=== PATIENT | male | born 1960 | race Caucasian/White ===

== ENCOUNTER 2021-05-22 06:50 | Inpatient (IN) ==
[2021-05-22] MEDS ORDERED: CeFAZolin Syr 2,000MG/20 ML 2,000 MG/20 ML SYRINGE IVPB ONE (07:28)
[2021-05-22] MEDS ORDERED: Ringers Solution, Lactated 1,000 ML IVC SCH (07:30)
[2021-05-22] MEDS ORDERED: Acetaminophen IV 1,000 MG/100 ML BAG IVPB ONE (07:47)
[2021-05-22] MEDS ORDERED: *HR* FentaNYL (PF) 100 MCG/2 ML VIAL ONE (08:07)
[2021-05-22] MEDS ORDERED: *HR* Propofol 200 MG/20 ML VIAL IVP ONE (08:07)
[2021-05-22] MEDS ORDERED: Lidocaine HCL 4 ML Topical Solution (Laryng-O-Jet Kit Sterile Pak) TP ONE (08:09)
[2021-05-22] MEDS ORDERED: Lidocaine -MPF 2% 2 ML VIAL ONE (08:09)
[2021-05-22] MEDS ORDERED: Ondansetron 4 MG/2 ML VIAL ONE (08:09)
[2021-05-22] MEDS ORDERED: *HR* Rocuronium Bromide 50 MG/5 ML VIAL ONE (08:09)
[2021-05-22] MEDS ORDERED: *HR* Succinylcholine 200 MG/10 ML VIAL IVP ONE (08:09)
[2021-05-22] MEDS ORDERED: *HR* HYDROMORPHONE 2 MG/ML VIAL ONE (09:48)
[2021-05-22] MEDS: *HR* HYDROmorphone (PF) 1 MG/ML SYRINGE IVP PRN ×3 (12:10→23:50)
[2021-05-22] MEDS ORDERED: Ondansetron 4 MG/2 ML VIAL IVP PRN ×2 (12:14→13:00)
[2021-05-22] MEDS ORDERED: *HR* FentaNYL (PF) 100 MCG/2 ML VIAL IVP PRN (12:14)
[2021-05-22] MEDS ORDERED: Naloxone 0.4 MG/ML INJ IVP PRN (13:00)
[2021-05-22] MEDS: 0.9 % Sodium Chloride 1,000 ML IVC SCH (13:44)
[2021-05-22] MEDS: Gabapentin 300 MG CAPSULE PO SCH ×2 (15:31→21:19)
[2021-05-22] MEDS: *HR* Heparin 5,000 UNIT/ML VIAL SQ SCH ×2 (15:31→21:19)
[2021-05-22] MEDS: Ipratropium/Albuterol Neb 3 ML IH SCH ×4 (15:42→23:00)
[2021-05-22] MEDS: *HR* HYDROcodone/Acet 5/325 mg TABLET PO PRN ×2 (17:47→23:16)
[2021-05-22] MEDS: Sennosides/Docusate Sodium TABLET PO SCH (21:19)
[2021-05-22] MEDS: Famotidine 20 MG TABLET PO SCH (21:19)
[2021-05-22] MEDS: *HR* HYDROcodone/Acet 7.5/325 mg TABLET PO PRN (23:50)
[2021-05-23 02:24] LABS: Hematocrit 33.5 % (37.5-50.1); Hemoglobin 10.2 g/dL (12.9-16.9); Mean Corpuscular HGB Conc 30.4 g/dL (31.6-35.5); Mean Corpuscular Volume 85.2 fL (83.0-100.0); Mean Platelet Volume 9.4 fL (9.4-12.4); Platelet Count 413 K/mcL (140-400); Red Blood Count 3.93 M/mcL (4.19-5.50); Red Cell Distribution Width 13.9 % (11.5-14.5)
[2021-05-23 02:26] LABS: White Blood Count 16.7 K/mcL (4.3-11.1)
[2021-05-23 02:41] LABS: % Iron Saturation 3 % (20-55); BUN/Creatinine Ratio 20 (6-26); Blood Urea Nitrogen 25 mg/dL (6-20); Calcium 8.6 mg/dL (8.6-10.3); Carbon Dioxide 25 mEq/L (23-29); Chloride 107 mEq/L (98-107); Glucose 140 mg/dL (70-105); Iron 11 mcg/dL (65-175); Magnesium 1.9 mg/dL (1.6-2.6); Osmolality,Calculated 297 (280-300); Potassium 4.5 mEq/L (3.5-5.1); Sodium 140 mEq/L (136-145); Transferrin 278 mg/dL (203-362); eGFR For African Americans > 60 (> 60); eGFR For Non-African Americans 58 (> 60)
[2021-05-23] MEDS: 0.9 % Sodium Chloride 1,000 ML IVC SCH (02:43)
[2021-05-23] MEDS: Ipratropium/Albuterol Neb 3 ML IH SCH ×6 (03:14→23:56)
[2021-05-23] MEDS: *HR* HYDROcodone/Acet 7.5/325 mg TABLET PO PRN ×3 (04:55→20:49)
[2021-05-23] MEDS: *HR* Heparin 5,000 UNIT/ML VIAL SQ SCH ×3 (06:22→20:51)
[2021-05-23] MEDS: *HR* HYDROmorphone (PF) 1 MG/ML SYRINGE IVP PRN ×2 (06:51→15:27)
[2021-05-23] MEDS: Psyllium 1 PACKET POWD.PACK PO SCH (08:00)
[2021-05-23] MEDS: Sennosides/Docusate Sodium TABLET PO SCH ×2 (08:00→20:52)
[2021-05-23] MEDS: amLODIPine 5 MG TABLET PO SCH (08:00)
[2021-05-23] MEDS: Famotidine 20 MG TABLET PO SCH ×2 (08:00→20:52)
[2021-05-23] MEDS: Aspirin Enteric Coated 81 MG Tablet PO SCH (08:00)
[2021-05-23] MEDS: Gabapentin 300 MG CAPSULE PO SCH ×3 (08:00→20:52)
[2021-05-23] MEDS: ARNUITY ELLIPTA PO SCH (08:01)
[2021-05-23] MEDS ORDERED: *HR* HYDROcodone/Acet 10/325 mg TABLET PO PRN (08:34)
[2021-05-23] MEDS ORDERED: lisinopriL 20 MG TABLET PO SCH ×2 (09:00)
[2021-05-23] MEDS: Metoclopramide 10 MG/2 ML VIAL IVP SCH ×2 (14:02→20:51)
[2021-05-24] MEDS: Metoclopramide 10 MG/2 ML VIAL IVP SCH ×2 (00:42→06:23)
[2021-05-24 01:10] LABS: Calcium 8.2 mg/dL (8.6-10.3); Potassium 4.7 mEq/L (3.5-5.1)
[2021-05-24] MEDS: Ipratropium/Albuterol Neb 3 ML IH SCH ×6 (03:45→23:39)
[2021-05-24] MEDS: *HR* Heparin 5,000 UNIT/ML VIAL SQ SCH ×3 (06:23→21:10)
[2021-05-24] MEDS: Aspirin Enteric Coated 81 MG Tablet PO SCH (08:02)
[2021-05-24] MEDS: Famotidine 20 MG TABLET PO SCH (08:02)
[2021-05-24] MEDS: Gabapentin 300 MG CAPSULE PO SCH ×3 (08:02→21:11)
[2021-05-24] MEDS: amLODIPine 5 MG TABLET PO SCH (08:02)
[2021-05-24] MEDS: Sennosides/Docusate Sodium TABLET PO SCH ×2 (08:02→21:06)
[2021-05-24] MEDS: ARNUITY ELLIPTA PO SCH (08:03)
[2021-05-24] MEDS: Psyllium 1 PACKET POWD.PACK PO SCH (08:03)
[2021-05-24] MEDS: lisinopriL 20 MG TABLET PO SCH (08:04)
[2021-05-24] MEDS: *HR* HYDROcodone/Acet 7.5/325 mg TABLET PO PRN (14:30)
[2021-05-24] MEDS: Albumin Human 5% 12.5 GM/250 ML IV.SOLN IVC SCH ×2 (15:37→21:06)
[2021-05-24] MEDS: Acetylcysteine 10% 2 ML INHSOL IH SCH ×3 (15:37→23:39)
[2021-05-25] MEDS: Ipratropium/Albuterol Neb 3 ML IH SCH ×6 (04:28→23:17)
[2021-05-25] MEDS: Acetylcysteine 10% 2 ML INHSOL IH SCH ×6 (04:28→23:17)
[2021-05-25] MEDS: *HR* Heparin 5,000 UNIT/ML VIAL SQ SCH ×4 (06:17→21:28)
[2021-05-25] MEDS: amLODIPine 5 MG TABLET PO SCH (07:15)
[2021-05-25] MEDS: Sennosides/Docusate Sodium TABLET PO SCH ×3 (07:15→21:28)
[2021-05-25] MEDS: Gabapentin 300 MG CAPSULE PO SCH ×4 (07:15→21:28)
[2021-05-25] MEDS: lisinopriL 20 MG TABLET PO SCH (07:16)
[2021-05-25] MEDS: ARNUITY ELLIPTA PO SCH (07:16)
[2021-05-25] MEDS: Famotidine 20 MG TABLET PO SCH (07:16)
[2021-05-25] MEDS: Aspirin Enteric Coated 81 MG Tablet PO SCH (07:16)
[2021-05-25] MEDS: Psyllium 1 PACKET POWD.PACK PO SCH (07:16)
[2021-05-25 07:55] LABS: BUN/Creatinine Ratio 34 (6-26); Blood Urea Nitrogen 40 mg/dL (6-20); Carbon Dioxide 30 mEq/L (23-29); Chloride 106 mEq/L (98-107); Glucose 112 mg/dL (70-105); Magnesium 2.4 mg/dL (1.6-2.6); Osmolality,Calculated 301 (280-300); Potassium 4.1 mEq/L (3.5-5.1); Sodium 140 mEq/L (136-145); eGFR For African Americans > 60 (> 60); eGFR For Non-African Americans > 60 (> 60)
[2021-05-25] MEDS: *HR* HYDROcodone/Acet 7.5/325 mg TABLET PO PRN (14:14)
[2021-05-25 22:02] LABS: Basophils # 0.1 K/mcL (0.0-0.2); Basophils % 0.5 %; Eosinophils # 0.1 K/mcL (0.0-0.6); Eosinophils % 1.2 %; Immature Granulocytes % 0.6 % (0-4); Mean Corpuscular HGB Conc 29.7 g/dL (31.6-35.5); Mean Corpuscular Hemoglobin 24.9 pg (28.0-33.3); Mean Corpuscular Volume 84.1 fL (83.0-100.0); Mean Platelet Volume 8.8 fL (9.4-12.4); Monocytes % 9.9 %; Neutrophils # 8.1 K/mcL (1.6-8.9); Platelet Count 346 K/mcL (140-400); Red Blood Count 3.45 M/mcL (4.19-5.50); Red Cell Distribution Width 14.5 % (11.5-14.5); Segmented Neutrophils % 77.8 %; White Blood Count 10.5 K/mcL (4.3-11.1)
[2021-05-25 22:03] LABS: Hemoglobin 8.6 g/dL (12.9-16.9)
[2021-05-25 22:19] LABS: BUN/Creatinine Ratio 34 (6-26); Blood Urea Nitrogen 30 mg/dL (6-20); Calcium 9.2 mg/dL (8.6-10.3); Carbon Dioxide 30 mEq/L (23-29); Chloride 104 mEq/L (98-107); Glucose 137 mg/dL (70-105); Osmolality,Calculated 298 (280-300); Potassium 4.1 mEq/L (3.5-5.1); Sodium 140 mEq/L (136-145); eGFR For African Americans > 60 (> 60); eGFR For Non-African Americans > 60 (> 60)
[2021-05-25 23:18] LABS: VBG HCO3 33 mEq/L (21-27); VBG PCO2 50 mmHg (41-51); VBG PH 7.42 pH Units (7.32-7.42); VBG PO2 225 mmHg (25-50)
[2021-05-26 00:24] LABS: Basophils # 0.1 K/mcL (0.0-0.2); Basophils % 0.5 %; Eosinophils # 0.1 K/mcL (0.0-0.6); Eosinophils % 1.4 %; Hematocrit 28.7 % (37.5-50.1); Hemoglobin 8.5 g/dL (12.9-16.9); Immature Granulocytes % 0.4 % (0-4); Lymphocytes # 1.2 K/mcL (0.6-4.6); Mean Corpuscular HGB Conc 29.6 g/dL (31.6-35.5); Mean Corpuscular Hemoglobin 24.9 pg (28.0-33.3); Mean Corpuscular Volume 83.9 fL (83.0-100.0); Mean Platelet Volume 8.6 fL (9.4-12.4); Monocytes % 10.5 %; Neutrophils # 7.3 K/mcL (1.6-8.9); Nucleated Red Blood Cells 0.2 /100 WBC (0); Platelet Count 343 K/mcL (140-400); Red Blood Count 3.42 M/mcL (4.19-5.50); Red Cell Distribution Width 14.5 % (11.5-14.5); Segmented Neutrophils % 75.2 %; White Blood Count 9.7 K/mcL (4.3-11.1)
[2021-05-26 00:43] LABS: BUN/Creatinine Ratio 34 (6-26); Blood Urea Nitrogen 28 mg/dL (6-20); Calcium 9.4 mg/dL (8.6-10.3); Carbon Dioxide 31 mEq/L (23-29); Chloride 104 mEq/L (98-107); Glucose 127 mg/dL (70-105); Magnesium 2.1 mg/dL (1.6-2.6); Osmolality,Calculated 297 (280-300); Potassium 3.9 mEq/L (3.5-5.1); Sodium 140 mEq/L (136-145); eGFR For African Americans > 60 (> 60); eGFR For Non-African Americans > 60 (> 60)
[2021-05-26] MEDS: Lactulose Oral Soln 20 GM/30 ML UDC PO SCH ×2 (01:02→07:30)
[2021-05-26] MEDS: Ipratropium/Albuterol Neb 3 ML IH SCH ×6 (03:21→23:24)
[2021-05-26] MEDS: Acetylcysteine 10% 2 ML INHSOL IH SCH ×3 (03:21→11:06)
[2021-05-26] MEDS: *HR* Heparin 5,000 UNIT/ML VIAL SQ SCH ×3 (05:23→22:39)
[2021-05-26] MEDS: Famotidine 20 MG TABLET PO SCH (07:29)
[2021-05-26] MEDS: Aspirin Enteric Coated 81 MG Tablet PO SCH (07:29)
[2021-05-26] MEDS: Sennosides/Docusate Sodium TABLET PO SCH ×2 (07:29→22:06)
[2021-05-26] MEDS: lisinopriL 20 MG TABLET PO SCH (07:29)
[2021-05-26] MEDS: Gabapentin 300 MG CAPSULE PO SCH (07:29)
[2021-05-26] MEDS: ARNUITY ELLIPTA PO SCH (07:30)
[2021-05-26] MEDS: Psyllium 1 PACKET POWD.PACK PO SCH (07:30)
[2021-05-26] MEDS: amLODIPine 5 MG TABLET PO SCH (07:30)
[2021-05-26 07:36] LABS: Bilirubin,Urine Negative (Negative); Blood,Urine Negative (Negative); Clarity,Urine Clear (Clear); Color,Urine Light-Yellow (Yellow); Glucose,Urine (UA) Normal (Normal); Ketones,Urine Trace mg/dL (Negative); Leukocyte Esterase,Urine Negative (Negative); Nitrite,Urine Negative (Negative); Protein,Urine Trace mg/dL (Neg-Trace); Specific Gravity,Urine 1.026 (1.010-1.025); Urobilinogen,Urine Normal (Normal)
[2021-05-26] MEDS ORDERED: *HR* HYDROcodone/Acet 5/325 mg TABLET PO PRN (12:45)
[2021-05-26] MEDS ORDERED: Haloperidol Lactate 5 MG/ML VIAL IVP PRN (20:00)
[2021-05-27] MEDS: Ipratropium/Albuterol Neb 3 ML IH SCH ×6 (03:37→23:16)
[2021-05-27] MEDS: *HR* Heparin 5,000 UNIT/ML VIAL SQ SCH ×3 (05:26→22:14)
[2021-05-27 06:40] LABS: Basophils # 0.1 K/mcL (0.0-0.2); Basophils % 0.5 %; Eosinophils # 0.2 K/mcL (0.0-0.6); Eosinophils % 2.3 %; Hematocrit 28.1 % (37.5-50.1); Hemoglobin 8.6 g/dL (12.9-16.9); Immature Granulocytes % 0.5 % (0-4); Lymphocytes # 1.6 K/mcL (0.6-4.6); Lymphocytes % 16.2 %; Mean Corpuscular HGB Conc 30.6 g/dL (31.6-35.5); Mean Corpuscular Hemoglobin 25.1 pg (28.0-33.3); Mean Corpuscular Volume 82.2 fL (83.0-100.0); Mean Platelet Volume 8.9 fL (9.4-12.4); Monocytes # 1.2 K/mcL (0.0-1.3); Monocytes % 12.3 %; Neutrophils # 6.6 K/mcL (1.6-8.9); Platelet Count 373 K/mcL (140-400); Red Blood Count 3.42 M/mcL (4.19-5.50); Red Cell Distribution Width 14.4 % (11.5-14.5); Segmented Neutrophils % 68.2 %; White Blood Count 9.6 K/mcL (4.3-11.1)
[2021-05-27 07:03] LABS: BUN/Creatinine Ratio 27 (6-26); Blood Urea Nitrogen 21 mg/dL (6-20); Carbon Dioxide 33 mEq/L (23-29); Chloride 101 mEq/L (98-107); Glucose 108 mg/dL (70-105); Osmolality,Calculated 290 (280-300); Potassium 3.8 mEq/L (3.5-5.1); Sodium 138 mEq/L (136-145); eGFR For African Americans > 60 (> 60); eGFR For Non-African Americans > 60 (> 60)
[2021-05-27] MEDS: ARNUITY ELLIPTA PO SCH (07:40)
[2021-05-27] MEDS: amLODIPine 5 MG TABLET PO SCH (07:40)
[2021-05-27] MEDS: Sennosides/Docusate Sodium TABLET PO SCH ×3 (07:40→20:14)
[2021-05-27] MEDS: lisinopriL 20 MG TABLET PO SCH (07:40)
[2021-05-27] MEDS: Famotidine 20 MG TABLET PO SCH (07:40)
[2021-05-27] MEDS: Psyllium 1 PACKET POWD.PACK PO SCH (07:40)
[2021-05-27] MEDS: Aspirin Enteric Coated 81 MG Tablet PO SCH (07:40)
[2021-05-27] MEDS ORDERED: Talc (sterile) 4 GM, 0.9 % Sodium Chloride 50 ML, Syringe LUER-LOK 1 EACH IX ONE (13:15)
[2021-05-28] MEDS: Ipratropium/Albuterol Neb 3 ML IH SCH ×3 (03:58→11:06)
[2021-05-28] MEDS ORDERED: Talc (sterile) 4 GM, 0.9 % Sodium Chloride 50 ML, Syringe LUER-LOK 1 EACH IX ONE (06:00)
[2021-05-28] MEDS: *HR* Heparin 5,000 UNIT/ML VIAL SQ SCH (06:25)
[2021-05-28 06:58] VITALS: TEMP 98.3
[2021-05-28 07:46] VITALS: BP 146/74; PULSE 72; O2SAT 94
[2021-05-28] MEDS: Psyllium 1 PACKET POWD.PACK PO SCH (09:36)
[2021-05-28] MEDS: Aspirin Enteric Coated 81 MG Tablet PO SCH (09:36)
[2021-05-28] MEDS: Sennosides/Docusate Sodium TABLET PO SCH (09:36)
[2021-05-28] MEDS: amLODIPine 5 MG TABLET PO SCH (09:36)
[2021-05-28] MEDS: Famotidine 20 MG TABLET PO SCH (09:36)
[2021-05-28] MEDS: lisinopriL 20 MG TABLET PO SCH (09:36)
[2021-05-28] MEDS: ARNUITY ELLIPTA PO SCH (09:55)
[2021-05-28] MEDS ORDERED: Amoxicillin/Clavulanate 500 MG TABLET PO SCH (10:00)
== END 2021-05-28 12:09 | disposition home health service (06) | DRG 163 ==
LOC: SAMDAY 06:50 → SUATTDRO 12:55 → 2NNU 12:55
PROVIDERS: ADMIT Thoracic Surgery (Cardiothoracic Vascular Surgery); ATTEND Internal Medicine